=== PATIENT | male | born 1940 | race Hispanic/Latino ===

== ENCOUNTER 2018-10-03 06:16 | Day surgery (SDC) | payer MEDICARE ==
[2018-09-30 10:08] VITALS: BP 192/69
[2018-09-30 10:15] LABS: BASOPHILS % (AUTO) 0.7 % (0.0-5.0); EOSINOPHILS % (AUTO) 7.3 % (0.0-8.0); HEMATOCRIT 37.9 % (42-54); LYMPHOCYTES % (AUTO) 19.8 % (21.0-51.0); MEAN CORPUSCULAR HEMOGLOBIN 29.7 pg (27.0-33.0); MEAN CORPUSCULAR HGB CONC 33.9 g/dL (32.0-36.0); MEAN CORPUSCULAR VOLUME 87.8 fL (79-99); MONOCYTES % (AUTO) 5.3 % (3.0-13.0); NEUTROPHILS % (AUTO) 66.9 % (40.0-77.0); NUCLEATED RED BLOOD CELLS 0.1 % (0.0-0.19); PLATELET COUNT (AUTO) 144 K/uL (130-400); RED BLOOD CELL COUNT(AUTO) 4.31 MIL/uL (4.50-6.20); RED CELL DISTRIBUTION WIDTH 13.4 % (11.0-15.5); WHITE BLOOD COUNT (AUTO) 4.8 K/uL (4.8-10.8)
[2018-09-30 10:19] LABS: APPEARANCE,URINE Clear (CLEAR); BILIRUBIN,URINE Negative (NEGATIVE); COLOR,URINE Yellow (YELLOW); GLUCOSE, URINE (UA) >=1000 mg/dL (NEGATIVE); KETONES,URINE Negative (NEGATIVE); LEUKOCYTE ESTERASE ,URINE Negative (NEGATIVE); NITRATE,URINE Negative (NEGATIVE); OCCULT BLOOD,URINE Negative (NEGATIVE); PROTEIN,URINE Negative (NEGATIVE); UROBILINOGEN,URINE 0.2 mg/dL (0.2-1.0)
[2018-09-30 10:22] LABS: CREATININE 0.9 mg/dL (0.5-1.5); POTASSIUM 4.8 mmol/L (3.5-5.1)
[2018-09-30 10:37] LABS: BACTERIA,URINE None Seen /HPF (None Seen); RBC,URINE None Seen /HPF (0-1); SQUAMOUS EPITHELIAL CELL,UR 0-2 /HPF (0-2); WBC,URINE None Seen /HPF (0-1)
[2018-09-30 10:39] LABS: PARTIAL THROMBOPLASTIN TIME 27.3 SEC (26.3-35.5); PROTHROMBIN TIME 10.5 SEC (9.6-11.6)
[~2018-10-03] VITALS: Ht 177.8 cm; Wt 89.5 kg
[2018-10-03] VITALS (17 sets, daily range): BP systolic 76–182; BP diastolic 32–83
[~2018-10-03 06:16] MED LIST: AMLO1CAP12 PO; ASPI-555 PO; CARV25TA PO; PIOG15TA66 PO; ROSU10TA22 PO; SITA1TAB6 PO; SODIUM CHLORIDE 0.9% 1000ML 1,000 ML IV ONE; SODIUM CHLORIDE 0.9% 500ML 500 ML IV SCH; TAMS0.4C32 PO
[2018-10-03] MEDS ORDERED: HEPARIN SODIUM 1000UNIT/ML 10ML VIAL ONE (07:39)
[2018-10-03] MEDS ORDERED: NITROGLYCERIN 5 MG/ML 10 ML VIAL IV ONE (07:40)
[2018-10-03] MEDS ORDERED: LIDOCAINE HCL 2% 20ML ONE (07:40)
[2018-10-03] MEDS ORDERED: IODIXANOL 320 MG/ML 100 ML VIAL ONE (07:40)
--- NOTE | 2018-10-03 07:45 | NUR ---
TO PLISSE MACHINE OPERATOR PT TAKEN TO PLISSE MACHINE OPERATOR VIA BED. PT STABLE. NO COMPLAINTS MADE.
[2018-10-03] MEDS ORDERED: FENTANYL CITRATE PF 50 MCG/1 ML 2ML VIAL ONE (08:03)
[2018-10-03] MEDS ORDERED: MIDAZOLAM HCL 1 MG/ML 2ML VIAL ONE ×2 (08:03→08:46)
[2018-10-03] MEDS ORDERED: PROTAMINE SULFATE 10 MG/ML 25ML VIAL IV ONE (09:47)
[2018-10-03] MEDS ORDERED: SODIUM CHLORIDE 0.9% 1000ML 1,000 ML IV SCH (09:51)
[2018-10-03] MEDS ORDERED: CLOPIDOGREL BISULFATE 300 MG TAB ONE (09:54)
[2018-10-03] MEDS ORDERED: NITROGLYCERIN 0.4 MG SL TAB SL PRN (10:00)
[2018-10-03] MEDS ORDERED: METOPROLOL TARTRATE 1 MG/ML 5ML VIAL IV PRN (10:00)
[2018-10-03] MEDS ORDERED: GLUCAGON 1MG KIT 1 MG ML IM PRN (10:00)
[2018-10-03] MEDS ORDERED: ACETAMINOPHEN-CODEINE 300/30MG TAB PO PRN (10:00)
[2018-10-03] MEDS ORDERED: DEXTROSE 50%-WATER 50 ML DISP.SYRIN IV PRN (10:00)
[2018-10-03] MEDS ORDERED: HYDRALAZINE HCL 20 MG/ML VIAL ONE (10:22)
--- NOTE | 2018-10-03 10:59 | NUR ---
RECEIVE PT RECEIVED FROM TREE SURGEON HELPER VIA BED. AWAKE ALERT ORIENTED X3. KERLIX DRESSING TO RIGHT BRACHIAL AREA IN PLACE, UNABLE TO SEE CATH SITE, MARTELL DE SOUZA FROM TREE SURGEON HELPER REMOVED DRESSING. SLIGHT BRUISING UPPER ARM NOTED. SWELLING NOTED TO RIGHT UPPER ARM, SKIN TIGHT, D STAT DRESSING INTACT, SITE NO ACTIVE BLEEDING, NO BRUISING NOTED. PT COMPLAINS OF PAIN TO CATH SITE. MARTLEL DE SOUZA APPLIED PRESSURE TO CATH SITE, RIGHT ARM. PT'S BP MONITORED, 98/41 HR 71, O2 SAT 99% RA. PT IS ASYMPTOMATIC, DENIES CHEST PAIN, NO DIZZINESS, SKIN PINK AND WARM. PT'S VITAL SIGNS BEING MONITORED, REMAINS HYPOTENSIVE. MARTELL SALEH CALLED DR. FLORES AND NOTIFIED, PER DR. FLORES, GIVE PT NS BOLUS, WIDE OPEN AND DRAW H&H.
--- NOTE | 2018-10-03 11:10 | NUR ---
ASSESS RIGHT GROIN, LOWER EXTREMITY FEELS WARM, SKIN PINK, NO SWELLING NOTED, NO PAIN PER PT.
--- NOTE | 2018-10-03 11:25 | NUR ---
NOTE FLOR WEB SITE ADMIN HERE TO RELIEVE MARTELL DE SOUZA IN APPLYING PRESSURE TO CATH SITE. LESS SWELLING NOTED TO CATH, ALSO NOTED TO BE LESS FIRM. PUNCTURE SITE REMAINS DRY, INTACT, NO BLEEDING NO HEMATOMA NOTED.
[2018-10-03] MEDS ORDERED: INSULIN HUMULIN R 100 UNIT/ML 3ML SQ SCH (11:30)
[2018-10-03 11:31] LABS: HEMATOCRIT 34.6 % (42-54)
--- NOTE | 2018-10-03 11:35 | NUR ---
NOTE KERLIX DRESSING/ARM SPLINT APPLIED BY LINETTE RAY. RIGHT UPPER ARM IS SIGNIFICANTLY LESS SWOLLEN, LESS FIRM. NO ACTIVE BLEEDING NO HEMATOMA NOTED. WILL CONTINUE TO MONITOR PT. INSTRUCTED TO KEEP RIGHT ARM STRAIGHT, KEEP ON BEDREST. VERBALIZED UNDERSTANDING.
--- NOTE | 2018-10-03 11:45 | NUR ---
NOTIFY H&H DR. FLORES HERE IN ROOM CHECKING UP ON PT. H&H RESULT REPORTED TO DR. FLORES. PER DR. FLORES, WE WILL CONTINUE MONITOR PT. WATCH OUT FOR SWELLING, PAIN TO RIGHT FEMORAL AREA/RIGHT LOWER EXTREMITY. Addendum: 10/03/18 at 1303 by TANYA CHEATHAM RN RN ADDENDUM: PER DR. FLORES, NO NEED TO APPLY PRESSURE DRESSING.
--- NOTE | 2018-10-03 12:00 | NUR ---
ASSESS RIGHT GROIN/LOWER EXTREMITY ASSESSED, PT DENIES PAIN TO AREA, NO SWELLING, NO DISCOLORATION NOTED, REMAINS WARM. WILL CONTINUE TO MONITOR
--- NOTE | 2018-10-03 12:25 | NUR ---
PAIN PT COMPLAINING OF PAIN TO RIGHT UPPER ARM, SCALE OF 5. CALLED C CONNOR HARVEY FOR PLAIN TYLENOL. PER CONNOR HARVEY MAY GIVE TYLENOL 500MG 1-2 TABS PO Q4HRS NEEDED FOR PAIN.
[2018-10-03] MEDS ORDERED: ACETAMINOPHEN EXTRA STRENGTH 500 MG TABLET ONE (12:31)
[2018-10-03] MEDS ORDERED: ACETAMINOPHEN EXTRA STRENGTH 500 MG TABLET PO PRN (13:30)
--- NOTE | 2018-10-03 13:38 | NUR ---
DIET PT STABLE. PT EATING HIS MEAL, ASSISTING IN FEEDING PT. BS CHECKED; 215, COVERED WITH 3 UNITS REGULAR INSULIN GIVEN BY MARTELL VIDES TO LEFT ARM SQ. TOLERATING WELL.
--- NOTE | 2018-10-03 13:50 | NUR ---
REPORT REPORT GIVEN TO TOMMY QUINTANA RN. RIGHT BRACHIAL SLIGHTLY FIRM, PUNCTURE SITE NO BLEEDING NO HEMATOMA NOTED. RIGHT GROIN, LOWER EXTREMITY REMAINS WARM, NO SWELLING NOTED, NO PAIN PER PT. DR. FLORES CAME IN AND CHECKED UP ON PT, STATED OKAY TO HAVE PT MOVE HIS RIGHT ARM. MAY STOP IV FLUIDS Addendum: 10/03/18 at 1447 by TANYA CHEATHAM RN RN ADDENDUM: @1350 PT'S RIGHT BRACHIAL AREA IS LESS FIRM, LESS SWELLING NOTED. PT STATES HIS PAIN TO AREA HAD GONE DOWN TO 1-2. IV FLUIDS STOPPED. PT STABLE, NOT IN ANY APPARENT DISTRESS. LUNGS CLEAR BILATERALLY ON AUSCULTATION.
--- NOTE | 2018-10-03 13:50 | NUR ---
ASUMED CARE AND RECEIVED REPORT FROM TERESA CHEATHAM RN
--- NOTE | 2018-10-03 14:00 | NUR ---
AWAKE, ALERT, ORIENTED, REMOVED GAUZE WRAP FROM RIGHT ARM, NO SIGNS OF HEMATOMA, RIGHT RADIAL PULSE STRONG, DENIES NUMBNESS, COLOR PINK TO NAIL BEDS, SLIGHT SWELLING NOTED TO RIGHT BICEPS AREA, PAIN LEVEL 1. RIGHT LEG WITH WEAK BUT PALPABLE TO TOUCH, DENIES NUMBNESS, COLOR PINK TO NAIL BEDS, PATIENT DENIES PAIN.
--- NOTE | 2018-10-03 14:30 | NUR ---
UP TO BEDSIDE CHAIR, TOLERATING WELL
== END 2018-10-03 15:15 | disposition home or self-care (01) ==
LOC: DAH 06:16
PROVIDERS: ATTEND Internal Medicine Cardiovascular Disease
DX: I70.213 Atherosclerosis of native arteries of extremities with intermittent claudication, bilateral legs (principal); I70.218 Atherosclerosis of native arteries of extremities with intermittent claudication, other extremity; E11.51 Type 2 diabetes mellitus with diabetic peripheral angiopathy without gangrene; E78.5 Hyperlipidemia, unspecified; Z79.899 Other long term (current) drug therapy; Z79.01 Long term (current) use of anticoagulants; I10 Essential (primary) hypertension; I25.10 Atherosclerotic heart disease of native coronary artery without angina pectoris; I35.0 Nonrheumatic aortic (valve) stenosis; Z95.1 Presence of aortocoronary bypass graft; I87.2 Venous insufficiency (chronic) (peripheral); N40.0 Benign prostatic hyperplasia without lower urinary tract symptoms
CPT/HCPCS: 36415 ×2; 37225; 71045; 75716; 80048; 81001; 82948 ×3; 85014; 85018; 85025; 85347 ×2; 85610; 85730; 93005; C1725; C1769 ×3; C1887; C1893; C1894 ×2; J0360; J1644 ×2; J1815; J2250 ×2; J2720; J3010; J3490 ×2; J7030; Q9967; 99156; 99157

== ENCOUNTER 2019-05-24 05:41 | Day surgery (SDC) | payer MEDICARE ==
[2019-05-22 08:39] VITALS: BP 136/69
[2019-05-22 08:40] LABS: BASOPHILS % (AUTO) 1.6 % (0.0-5.0); EOSINOPHILS % (AUTO) 8.6 % (0.0-8.0); HEMATOCRIT 36.5 % (42-54); MEAN CORPUSCULAR HGB CONC 33.9 g/dL (32.0-36.0); MEAN CORPUSCULAR VOLUME 88.4 fL (79-99); MONOCYTES % (AUTO) 4.5 % (3.0-13.0); NEUTROPHILS % (AUTO) 66.3 % (40.0-77.0); PLATELET COUNT (AUTO) 159 K/uL (130-400); RED BLOOD CELL COUNT(AUTO) 4.13 MIL/uL (4.50-6.20); RED CELL DISTRIBUTION WIDTH 13.4 % (11.0-15.5); WHITE BLOOD COUNT (AUTO) 5.2 K/uL (4.8-10.8)
[2019-05-22 08:49] LABS: APPEARANCE,URINE Clear (CLEAR); BILIRUBIN,URINE Negative (NEGATIVE); COLOR,URINE Yellow (YELLOW); GLUCOSE, URINE (UA) Negative (NEGATIVE); KETONES,URINE Negative (NEGATIVE); LEUKOCYTE ESTERASE ,URINE Negative (NEGATIVE); NITRATE,URINE Negative (NEGATIVE); OCCULT BLOOD,URINE Negative (NEGATIVE); PROTEIN,URINE POS 1+ mg/dL (NEGATIVE); UROBILINOGEN,URINE 0.2 mg/dL (0.2-1.0)
[2019-05-22 08:49] LABS: CREATININE 0.9 mg/dL (0.5-1.5); POTASSIUM 4.7 mmol/L (3.5-5.1)
[2019-05-22 08:53] LABS: INR 1.01 (0.85-1.15); PARTIAL THROMBOPLASTIN TIME 26.8 SEC (26.3-35.5); PROTHROMBIN TIME 10.6 SEC (9.6-11.6)
[2019-05-22 08:56] LABS: BACTERIA,URINE Rare /HPF (None Seen); MUCUS,URINE Rare LPF (None Seen); RBC,URINE 0-1 /HPF (0-1); SQUAMOUS EPITHELIAL CELL,UR Rare /HPF (0-2); WBC,URINE 0-1 /HPF (0-1)
[~2019-05-24] VITALS: Ht 177.8 cm; Wt 91.8 kg
[2019-05-24] VITALS (18 sets, daily range): BP systolic 135–180; BP diastolic 52–94
[~2019-05-24 05:41] MED LIST changes: +AMLO-104 PO; -AMLO1CAP12 PO; +CLOP75TA32 PO; +CYAN-52 PO; -SODIUM CHLORIDE 0.9% 1000ML 1,000 ML IV ONE; -SODIUM CHLORIDE 0.9% 500ML 500 ML IV SCH
[2019-05-24] MEDS ORDERED: SODIUM CHLORIDE 0.9% 1000ML 1,000 ML IV ONE (06:15)
[2019-05-24] MEDS ORDERED: HEPARIN SODIUM 1000UNIT/ML 10ML VIAL ONE (09:04)
[2019-05-24] MEDS ORDERED: LIDOCAINE HCL 1% 20 ML VIAL ONE (09:04)
[2019-05-24] MEDS ORDERED: MIDAZOLAM HCL 1 MG/ML 2ML VIAL ONE ×2 (09:05→10:12)
[2019-05-24] MEDS ORDERED: FENTANYL CITRATE PF 50 MCG/1 ML 2ML VIAL ONE ×2 (09:05→10:50)
[2019-05-24] MEDS ORDERED: IODIXANOL 320 MG/ML 100 ML VIAL ONE (09:05)
[2019-05-24] MEDS ORDERED: NITROGLYCERIN 5 MG/ML 10 ML VIAL IV ONE (09:05)
[2019-05-24] MEDS ORDERED: HYDRALAZINE HCL 20 MG/ML VIAL ONE (10:52)
[2019-05-24] MEDS ORDERED: METOPROLOL TARTRATE 1 MG/ML 5ML VIAL IV PRN (11:15)
[2019-05-24] MEDS ORDERED: DEXTROSE 50%-WATER 50 ML DISP.SYRIN IV PRN (11:15)
[2019-05-24] MEDS ORDERED: GLUCAGON 1MG KIT 1 MG ML IM PRN (11:15)
[2019-05-24] MEDS ORDERED: INSULIN HUMULIN R 100 UNIT/ML 3ML SQ SCH (11:30)
[2019-05-24] MEDS: HYDRALAZINE HCL 20 MG/ML VIAL IV PRN ×2 (13:05→13:55)
--- NOTE | 2019-05-24 14:30 | NUR ---
BLOOD TINGED URINE NOTED. DR FLORES AWARE. AND CONNOR RODRÍGUEZ AWARE, DR FLORES STATED TO NOTIFY IF CHANGE IS NOTED. Addendum: 05/24/19 at 1432 by KEVIN GALVEZ RN RN Amended: Links added.
== END 2019-05-24 16:27 | disposition home or self-care (01) ==
LOC: DAH 05:41
PROVIDERS: ATTEND Internal Medicine Cardiovascular Disease
DX: I70.211 Atherosclerosis of native arteries of extremities with intermittent claudication, right leg (principal); E78.5 Hyperlipidemia, unspecified; I25.10 Atherosclerotic heart disease of native coronary artery without angina pectoris; E11.9 Type 2 diabetes mellitus without complications; I10 Essential (primary) hypertension; Z79.82 Long term (current) use of aspirin; Z79.899 Other long term (current) drug therapy; Z95.1 Presence of aortocoronary bypass graft; Z82.49 Family history of ischemic heart disease and other diseases of the circulatory system; Z82.5 Family history of asthma and other chronic lower respiratory diseases; Z79.01 Long term (current) use of anticoagulants
CPT/HCPCS: 36415; 37225; 75710; 75774; 80048; 81001; 82948 ×2; 85025; 85610; 85730; A4215; A4216; A4221; A4222; A4223 ×3; A4606; A4663; A6260; A6402; C1724; C1725 ×2; C1769 ×2; C1887; C1893; C1894 ×2; J0360 ×3; J1644 ×2; J2250 ×2; J3010 ×2; J3490; J7030; Q9967; 99156; 99157